=== PATIENT | female | born 1970 ===

== ENCOUNTER 2022-05-30 06:37 | Day surgery (SDC) | payer OTHER ==
[~2022-05-30] VITALS: Ht 170.2 cm; Wt 63.5 kg
[~2022-05-30 06:37] MED LIST: CHILDREN'S ASPI81 MG PO; LASIX20 MG PO; LOSARTAN POTAS100 MG PO; NORVASC5 MG PO; SYNTHROID50 MCG PO; TOPROL XL25 M1 PO
== END 2022-05-30 17:30 | disposition home or self-care (01) ==
LOC: CIR.AMB 06:37
PROVIDERS: ATTEND Orthopaedic Surgery Hand Surgery
DX: S52.321A Displaced transverse fracture of shaft of right radius, initial encounter for closed fracture (principal); Z88.0 Allergy status to penicillin; I10 Essential (primary) hypertension; Z79.82 Long term (current) use of aspirin; E03.9 Hypothyroidism, unspecified; Z20.822 Contact with and (suspected) exposure to COVID-19
CPT/HCPCS: 25515; 64708; L8699